=== PATIENT | male | born 1965 | race Caucasian/White ===

== ENCOUNTER 2016-08-25 22:24 | Emergency (ER) | payer OTHER, MEDICARE ==
[~2016-08-25 22:24] MED LIST: ENDOCET 325 MG-1 TAB PO; FLOMAX(MONOGRA0.4 MG PO; LOTRIMIN CR1 %/45 GM TOP; PERCOCET 325 MG1 TA2 PO
[2016-08-25 22:34] VITALS: BP 153/93
--- NOTE | 2016-08-25 22:48 | ED GENERAL ADULT ---
See Addendum History of Present Illness General Chief Complaint: Hand or Wrist Injury Stated Complaint: PAIN FROM LEFT HAND THAT RADIATES TO NECK Source: patient Exam Limitations: no limitations Vital Signs & Intake/Output Vital Signs & Intake/Output Vital Signs Date Time Temp Pulse Resp B/P B/P Pulse O2 O2 Flow FiO2 Mean Ox Delivery Rate 08/25 2316 98 Room Air 08/25 2234 98.8 83 16 153/93 98 Room Air ED Intake and Output 08/26 0000 08/25 1200 Intake Total 0 Output Total Balance 0 Intake, Oral 0 Patient 215 lb Weight Weight Reported by Patient Measurement Method Allergies Coded Allergies: NO KNOWN ALLERGIES (08/19/14) Reconcile Medications Acetaminophen/Oxycodone Hydr (Endocet 325 MG-10 MG) 1 TAB TAB 1 TAB PO TID PAIN CONTROL (Reported) Acetaminophen/Oxycodone Hydr (Endocet 325 MG-10 MG) 1 TAB TAB 1 TAB PO TID PRN PAIN TWENTY FOUR TABS... [id number] Clotrimazole (Lotrimin Cream 45GM) 1 % CREAM..G. 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 -N/V/D. SLIGHT SOB "INTO THE LEFT SIDE". 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 REPORTS BROTHER OF [place] AT AGE 46. Triage Nurses Notes Reviewed? yes Onset: Gradual Duration: hour(s): Timing: recent history Injury Environment: home Severity: mild Modifying Factors: Improves With: rest. Worsens With: movement. Associated Symptoms: left arm pain HPI: 51 yo gentleman presents with left arm discomfort that radiated up to his left chest. He had an episode yesterday that lasted 2 hours, and a second episode today which lasted 1 hour after [address]. He notes no pain at present, no shortness of breath, diaphoresis. He is otherwise well. Past History Travel History Traveled to [place] past 21 day No Medical History Any Pertinent Medical History? 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 No Review of Systems Review of Systems Constitutional: Reports: no symptoms. EENTM: Reports: no symptoms. Respiratory: Reports: no symptoms. Cardiovascular: Reports: no symptoms. GI: Reports: no symptoms. Genitourinary: Reports: no symptoms. Musculoskeletal: Reports: no symptoms. Skin: Reports: no symptoms. Neurological/Psychological: Reports: no symptoms. Hematologic/Endocrine: Reports: no symptoms. Immunologic/Allergic: Reports: no symptoms. All Other Systems: Reviewed and Negative Physical Exam Physical Exam General Appearance: well developed/nourished, no apparent distress Head: atraumatic, normal appearance Eyes: Bilateral: normal appearance, PERRL, EOMI. Ears, Nose, Throat: normal pharynx, normal ENT inspection Neck: normal inspection, supple, full range of motion Respiratory: normal breath sounds, chest non-tender, no respiratory distress, quiet respiration, lungs clear Cardiovascular: regular rate/rhythm, edema Gastrointestinal: normal bowel sounds, soft, non-tender, no organomegaly Back: normal inspection, normal range of motion Extremities: normal inspection Neurologic/Psych: no motor/sensory deficits, awake, alert, oriented x 3 Skin: intact, normal color, warm/dry Core Measures ACS in differential dx? No CVA/TIA Diagnosis: No Severe Sepsis Present: No Septic Shock Present: No Progress Differential Diagnoses I considered the following diagnoses in my evaluation of the patient: mi vs muscle spasm vs other. Plan of Care: Orders Procedure Date/time Status EKG 08/25 2232 Active Initial ED EKG: normal axis, normal intervals, normal p-waves, normal QRS complex, normal sinus rhythm Departure Departure Disposition: LEFT AGAINST MEDICAL ADVICE Condition: Stable Clinical Impression Primary Impression: Chest pain Secondary Impressions: Arm pain Referrals: JAMES PRECIADO (PCP/Family) Departure Forms: Customer Survey General Discharge Information Comments 08/26/16, 23:27... pt insists on leaving against medical advice. He notes, "I feel fine, doc... I have work in the morning." I informed him of the risks, including and serious morbidity. He expresses understanding, and has signed the AMA paperwork. I encouraged close follow up with the education instructor and return to the ED if his symptoms recur. Critical Care Note Critical Care Note Critical Care Time: non-applicable
[2016-08-26] MEDS ORDERED: OXYCONTIN10 M1 PO (18:55)
[2016-08-26] MEDS ORDERED: OXYCODONE HCL10 M2 PO (18:56)
== END 2016-08-25 23:35 | disposition left against medical advice (07) ==
LOC: ERH 22:24
DX: R07.9 Chest pain, unspecified (principal)
CPT/HCPCS: 93005; 93010

== ENCOUNTER 2016-08-26 08:51 | Inpatient (IN) | payer OTHER, MEDICARE ==
[~2016-08-26] VITALS: Ht 182.9 cm; Wt 97.5 kg
--- NOTE | 2016-08-26 08:59 | NUR ---
PT CALLED BACK TO ED BY DR. PINZON FOR ?HAD A HEART ATTACK PER PT. PT SEEN HERE LAST NIGHT AROUND 10PM AND THEN DISCHARGED HOME. HAD SOME CHEST PAIN INTERMITTENTLY FOR THE LAST TWO DAYS BUT NOW MOSTLY COMPLAINS OF L ARM DISCOMFORT THAT RADIATES INTO L CHEST AREA. DENIES SOB. NO ACUTE DISTRESS NOTED, DENIES N/V/D, DIZZINESS. EKG DONE IN [place].
--- NOTE | 2016-08-26 09:05 | NUR ---
PT TAKEN TO ROOM 10, HOOKED UP TO SHOE SHANKER.
--- NOTE | 2016-08-26 09:18 | NUR ---
PT TO ER ROOM 10. IV EST TO R HAND. BLOOD WORK DRAWN AND SENT TO LAB. PT C/O "DISCOMFORT" TO WRIST RADIATING UP L ARM TO L SIDE OF CHEST. NSR ON MONITOR. PER PT HE GOT A PHONE CALL STATING HE MIGHT HAVE HAD A HEART ATTACK. DENIES SOB, DENIES ABD PAIN. PT STATES HIS YOUNGER BROTHER OF A HEART ATTACK AND HIS FATHER HAS A PACEMAKER AND STENTS.
[2016-08-26 09:23] LABS: ABSOLUTE BASOPHIL COUNT 0 /CUMM (0.0-0.2); ABSOLUTE EOSINOPHIL COUNT 0.3 /CUMM (0.0-0.7); ABSOLUTE GRANULOCYTE CT 9.4 /CUMM (1.4-6.5); ABSOLUTE LYMPH COUNT 2.9 /CUMM (1.2-3.4); ABSOLUTE MONOCYTE COUNT 0.9 /CUMM (0.10-0.60); BASOPHIL % 0.3 % (0.0-2.0); EOSINOPHIL % 2.1 % (0-5); GRANULOCYTE % 69.9 % (42.2-75.2); HEMATOCRIT 43.7 % (42-52); MEAN CORPUSCULAR HGB 31.2 PG (27.0-31.0); MEAN CORPUSCULAR HGB CONC 34.7 G/DL (33.0-37.0); MEAN PLATELET VOLUME 7.7 FL (7.4-10.4); PLATELET COUNT 305 /CUMM (130-400); RBC DISTRIBUTION WIDTH 13.4 % (11.5-14.5); RED BLOOD CELL CT 4.86 /CUMM (4.70-6.10); WHITE BLOOD CELL COUNT 13.4 /CUMM (4.8-10.8)
--- NOTE | 2016-08-26 09:51 | NUR ---
PT MEDICATED WITH ASPIRIN AND NITRO PER ORDER STATES PAIN 05/27 AT THIS TIME BP 123/87
--- NOTE | 2016-08-26 09:51 | RADIOLOGY REPORT ---
EXAMINATION: XR PORTABLE CHEST CLINICAL INFORMATION: Chest pain COMPARISON: Chest x-ray dated 12/17/2008 TECHNIQUE: Portable frontal view of the chest was obtained. FINDINGS: Cardiomediastinal silhouette is within normal limits. Mild prominence of the pulmonary markings compatible with chronic change. No acute airspace disease. No evidence of pleural effusion. Bony thorax is intact. IMPRESSION: No acute pulmonary disease. Mild chronic changes.
--- NOTE | 2016-08-26 09:57 | NUR ---
CRITICAL TEST RESULTS [id number] JULIANNA ABDI 51 M TESTS AND RESULTS: TROPONIN 1.59 Results received and read back by: RASHAWN WERNER Results received date and time: 08/26/16 0957 The following provider was notified of the results, and read the results back: DR CASTELLANOS Notified date and time: 08/26/16 at 0957
--- NOTE | 2016-08-26 09:58 | NUR ---
PT REPORTS "I THINK THE PAIN GOT A LITTLE WORSE" WHEN ASKED IF PAIN IS BETTER AFTER THE NITRO. PT REPORTS PAIN 5/10 AT THIS TIME. MD RODRIGUEZ
--- NOTE | 2016-08-26 10:21 | ED CARDIAC/CP/PALPITATIONS ---
History of Present Illness General Chief Complaint: Chest Pain Stated Complaint: CHEST PAIN,L ARM PAIN Source: patient, old records Exam Limitations: no limitations Vital Signs & Intake/Output Vital Signs & Intake/Output Vital Signs Date Time Temp Pulse Resp B/P B/P Pulse O2 O2 Flow FiO2 Mean Ox Delivery Rate 08/26 1317 97.7 65 18 121/86 97 Room Air 08/26 1145 98.4 76 18 135/76 98 Room Air 08/26 1033 97.9 74 18 114/78 95 08/26 0958 98.4 76 18 124/79 98 Room Air 08/26 0952 98.6 81 18 123/87 98 Room Air 08/26 0916 98 Room Air 08/26 0905 97.5 88 15 132/88 96 Room Air Room Air Allergies Coded Allergies: NO KNOWN ALLERGIES (08/26/16) Reconcile Medications No Known Home Medications Triage Note: PT CALLED BACK TO ED BY DR. PINZON FOR ?HAD A HEART ATTACK PER PT. PT SEEN HERE LAST NIGHT AROUND 10PM AND THEN DISCHARGED HOME. HAD SOME CHEST PAIN INTERMITTENTLY FOR THE LAST TWO DAYS BUT NOW MOSTLY COMPLAINS OF L ARM DISCOMFORT THAT RADIATES INTO L CHEST AREA. DENIES SOB. NO ACUTE DISTRESS NOTED, DENIES N/V/D, DIZZINESS. EKG DONE IN [place]. Triage Nurses Notes Reviewed? yes Onset: 3 days Duration: day(s):, continues in ED, intermittent Timing: recent history Quality/Severity: moderate, severe, aching Location: left upper chest Radiation: arms (L hand) Activities at Onset: activity (climbing stairs) Modifying Factors: Improves With: rest. Worsens With: exercise. Nitro Today/Relief: 0.4 mg x 1, provided by ED Aspirin Today: 325 mg x 1, provided by ED Associated Symptoms: fatigue HPI: 3 days prior to admission after climbing upstairs patient felt left-sided chest discomfort moderate in severity radiating to left hand associated with shortness of breath resolving with rest occurring intermittently since then. He denies fever chills nausea vomiting diarrhea abdominal pain headache dysuria rash bleeding. Past History Travel History Traveled to [place] past 21 day No Medical History Any Pertinent Medical History? 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 Yes (brother w [place] @ 46 yo) Review of Systems Review of Systems Constitutional: Reports: no symptoms. EENTM: Reports: no symptoms. Respiratory: Reports: see HPI, short of breath. Cardiovascular: Reports: see HPI, chest pain. GI: Reports: no symptoms. Genitourinary: Reports: no symptoms. Musculoskeletal: Reports: no symptoms. Skin: Reports: no symptoms. Neurological/Psychological: Reports: no symptoms. Hematologic/Endocrine: Reports: no symptoms. Immunologic/Allergic: Reports: no symptoms. All Other Systems: Reviewed and Negative Physical Exam Physical Exam General Appearance: well developed/nourished, alert, awake, anxious Head: atraumatic, normal appearance Eyes: Bilateral: normal appearance, PERRL, EOMI. Ears, Nose, Throat: normal pharynx, normal ENT inspection, hearing grossly normal Neck: normal inspection, supple, full range of motion, no midline tenderness Respiratory: normal breath sounds, chest non-tender, no respiratory distress, quiet respiration, lungs clear Cardiovascular: regular rate/rhythm, normal peripheral pulses, norml femoral pulses equa Peripheral Pulses: 4+ carotid (R), 4+ carotid (L) Gastrointestinal: normal bowel sounds, soft, non-tender, no organomegaly Back: normal inspection, normal range of motion Extremities: normal inspection, normal capillary refill, normal range of motion, no edema Neurologic/Psych: no motor/sensory deficits, awake, alert, oriented x 3, normal gait, normal mood/affect, 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 Skin: intact, normal color, warm/dry Lymphatic: no anterior cervical jamie Core Measures ACS in differential dx? Yes ASA ordered for poss ACS? Yes-ordered Severe Sepsis Present: No Septic Shock Present: No Progress Differential Diagnosis: AMI, atrial fibrillation, costochondritis, musculoskeletal pain, myocarditis, pericarditis, pneumonia Plan of Care: Orders Procedure Date/time Status LIPID PANEL 08/27 599 Active CBC WITHOUT DIFFERENTIAL 08/27 599 Active Nothing by Mouth 08/26 D Active TROPONIN LEVEL 08/26 1500 Active EKG 08/26 1500 Active Add-on Test (ER Only) 08/26 1250 Active Pathway - chart 08/26 1235 Active Pathway - chart 08/26 1234 Active House Staff 08/26 1234 Active Code Status 08/26 1234 Active ECHOCARDIOGRAM 08/26 1234 Active Add-on Test (ER Only) 08/26 1219 Active Patient Data 08/26 1102 Active Admit to inpatient 08/26 1036 Active EKG 08/26 1020 Active Intake & Output 08/26 0916 Active THYROID STIMULATING HORMONE 08/26 0912 Active PROTHROMBIN TIME 08/26 0912 Complete B-TYPE NATRIURETIC PEP (BNP) 08/26 0912 Active TROPONIN LEVEL 08/26 0852 Active COMPREHENSIVE METABOLIC PANEL 08/26 0852 Active CBC WITHOUT DIFFERENTIAL 08/26 0852 Complete EKG 08/26 0851 Active VTE Mechanical Prophylaxis 08/26 UNK Active Current Medications Sig/Arlnee Start time Last Medication Dose Stop Time Status Admin Aspirin 81 MG DAILY 08/27 1000 UNVr (Aspirin) Atorvastatin Calcium 80 MG 1700 08/26 1700 UNVr (Lipitor) Acetaminophen 650 MG Q6P PRN 08/26 1245 UNVr (Tylenol) Ibuprofen 600 MG Q6P PRN 08/26 1245 UNVr (Motrin) Morphine Sulfate 2 MG Q4P PRN 08/26 1245 UNVr (Morphine) Laboratory Tests 08/26/16 0912: Anion Gap 12, Estimated GFR > 60, BUN/Creatinine Ratio 23.8, Glucose 109 H, Calcium 9.6, Total Bilirubin 0.6, AST 43, ALT 35, Alkaline Phosphatase 63, Troponin I 1.59 *H, [id number] Pept 273 H, Total Protein 6.9, Albumin 4.3, Globulin 2.6, Albumin/Globulin Ratio 1.7, TSH Pending, PT 10.5, INR 1.00, CBC w Diff NO MAN DIFF REQ, RBC 4.86, MCV 90.0, MCH 31.2 H, RDW 13.4, MPV 7.7, Gran % 69.9, Lymphocytes % 21.3, Monocytes % 6.4, Eosinophils % 2.1, Basophils % 0.3, Absolute Granulocytes 9.4 H, Absolute Lymphocytes 2.9, Absolute Monocytes 0.9 H, Absolute Eosinophils 0.3, Absolute Basophils 0, PUBS MCHC 34.7 Diagnostic Imaging: Viewed by Me: Radiology Read. Discussed w/RAD: Radiology Read. CXR Impression: no acute abnormality, no infiltrates, normal size heart, normal mediastinum Initial ED EKG: normal axis, normal intervals, normal p-waves, normal QRS complex, normal sinus rhythm, ST elevation (inferolateral), No reciprocal changes Prior EKG: unchanged Repeat EKG: unchanged Rhythm Strip: normal sinus rhythm Departure Departure Disposition: STILL A PATIENT Condition: Stable Clinical Impression Primary Impression: Acute myopericarditis Secondary Impressions: Chest pain syndrome, Elevated troponin Referrals: JAMES PRECIADO (PCP/Family) Departure Forms: Customer Survey General Discharge Information Prescriptions: Current Visit Scripts No Known Home Medications Admission Note Spoke With: SHEREE HALE MD Documentation of Exam: Documentation of any treatments & extenuating circumstances including Concerns Regarding Discharge (functional status, medication knowledge or non-compliance, living conditions, etc.) that warrant an admission rather than observation: Cardiac monitoring cardiology evaluation echocardiogram serial lab exam medication adjustment smoking cessation continuing care discharge planning Critical Care Note Critical Care Note Critical Care Time: 30-74 min (40)
--- NOTE | 2016-08-26 10:34 | NUR ---
PT MEDICATED WITH MORPHINE PER ORDER AT THIS TIME. STATES PAIN 07/27. 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
--- NOTE | 2016-08-26 10:37 | NUR ---
PER PAINT POURER PT TO BE ADMITTED TO ICU.
--- NOTE | 2016-08-26 10:42 | NUR ---
PT REPORTS PAIN IS MUCH BETTER AT THIS TIME. STATES 1/ AT THIS TIME. PT STATES HE WAS NAAUSEOUS "FOR A MINUTE AFTER YOU GAVE ME THE MEDICINE" BUT STATES THAT HAS SUBSIDED.
--- NOTE | 2016-08-26 11:38 | NUR ---
RESIDENT IN WITH PT AT THIS TIME
--- NOTE | 2016-08-26 12:14 | NUR ---
PT REMAINS RESTING ON STRETCHER AT THIS TIME. AWARE WAITING ON BED ASSISNGMENT, DENIES PAIN AT THIS TIME. REMAINS NSR ON MONITOR. VSS.
--- NOTE | 2016-08-26 12:35 | History & Physical ---
CARLTON MOON 08/26/16 1235: General Information and HPI MD Statement: I have seen and personally examined JULIANNA RICKS and documented this H&P. The patient is a 51 year old M who presented with a patient stated chief complaint of [CHEST PAIN]. Source of Information: patient, old records Exam Limitations: no limitations History of Present Illness: Mr. Ricks is a 51-year-old gentleman with past medical history of nephrolithiasis status post lithotripsy of bladder stone 2 weeks ago and chronic back pain after sustained fall many years ago, presents with hospital she department after he was instructed to do so by Dr. Encarnacion. Yesterday, the patient was in the emergency department with complaints of 2 episodes of chest pain. He unfortunately left AGAINST MEDICAL ADVICE prior to being fully worked up. Upon further questioning, he states that he had an episode of left arm/shoulder pain which she felt radiated to his chest after driving to his brother's house and then climbing up the stairs. He states that this is never happened before. States that it lasted approximately 1-1.5 hours and was mild to moderate in severity. He again had another episode yesterday night before coming to the emergency department he was watching television. It also lasted approximately 1 -1.5 hours. States that when he woke up today after he heard the phone ring, he again had similar arm/chest pain, approximately 7 out of 10 in severity, similar in character to the 2 previous episodes. He states that by the time he got to the hospital it was 2 out of 10 however creeped up to 4 out of 10 prior to getting morphine. At the time of interview the patient still had discomfort, 1/ 2 out of 10. He denies any previous similar episodes. He denies any associated symptoms including palpitations, lightheadedness, fever, diaphoresis, fatigue, dyspnea, edema, myalgias, nausea, vomiting, or abdominal pain. He denies any specific alleviating or exacerbating factors. He denies a pleuritic nature to the chest pain, or relief with leaning forward. Mr. Cook does state that last year he did see a chemistry laboratory technician for screening exercise stress test which she was told was within normal limits. He states that he did not have any chest pain or significant discomfort after being on the treadmill. 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 He has a significant past social history of cigarette use, 1 pack every 2-3 days for the last 30 years. He drinks 6-12 beers at family gatherings once to twice per month. He does have significant family history of coronary disease. His father had 3 epicardial impressions status post multiple stents. His brother Favian, passed at 46 years old from myocardial infarction. He has 2 other brothers, including 1 identical twin brother, Rich, who have no known coronary disease per the patient. In the emergency department, vitals on admission were stable, 97.5, 88 bpm, 15 breaths per minute, 132/88 saturating 96% on room air. EKG revealed sinus rhythm at a rate of [address] [place] [address] elevations, less than 1 mm in leads 2, 3, and V6. More significant ST elevations in lead V4 and V5. No T wave inversions. No noted [place] depression. Labs were significant for a troponin of 1.59. White blood cell count 13.4. BUNs/creatinine 19/0.8 with a glucose of 109. Chest x-ray was unremarkable. Allergies/Medications Allergies: Coded Allergies: NO KNOWN ALLERGIES (08/26/16) Home Med list Aspirin (Aspirin*) 81 MG TAB.CHEW 81 MG PO DAILY Heart health Heparin Sod,Porcine/0.9 % NaCl (Heparin-Ns 25,000 Units/250 Ml) 25,000 UNIT/250 ML (100 UNIT/ML) IV.SOLN 25,000 U IV DAILY anticoagulation please titrate to 2x the upper limits of normal for aPTT Oxycodone HCl (Oxycontin) 10 MG TAB.ER.12H 1 TAB PO BID BACK AND FLANK PAIN ( Reported) Oxycodone HCl 10 MG TABLET 1 TAB PO TID BACK AND FLANK PAIN (Reported) 1 TAB IN AM 2 TABS IN AFTERNOON 1 TAB IN PM Ticagrelor (Brilinta) 90 MG TABLET 1 TAB PO BID cardiac cath Compliance With Home Meds: GOOD Past History Travel History Traveled to [place] past 21 day No Medical History Neurological: NONE EENT: NONE Cardiovascular: NONE Respiratory: NONE Gastrointestinal: NONE Hepatic: NONE Renal: NONE Musculoskeletal: chronic back pain, disk herniation, sciatica Psychiatric: anxiety, depression Endocrine: NONE Blood Disorders: NONE Cancer(s): NONE GENERAL PRACTICE/Reproductive: NONE Surgical History Surgical History: non-contributory Past Family/Social History Family History Relations & Conditions if any BROTHER ([place] - at 46). FATHER (3 [place] s/p stents - alive at of 2017). Relation not specified for: *No pertinent family history Psychosocial History Where do you live? Home Services at Home: None Smoking Status: Current Everyday Smoker ETOH Use: occasional use Illicit Drug Use: denies illicit drug use Functional Ability ADLs Independent: dressing, eating, toileting, bathing. Ambulation: independent IADLs Independent: shopping, housework, finances, food prep, telephone, transportation , medication admin. Employment History Employment Disability Review of Systems Review of Systems Constitutional: Reports: see HPI. Exam & Diagnostic Data Last 24 Hrs of Vital Signs/I&O Vital Signs Date Time Temp Pulse Resp B/P B/P Pulse O2 O2 Flow FiO2 Mean Ox Delivery Rate 08/26 1145 98.4 76 18 135/76 98 Room Air 08/26 1033 97.9 74 18 114/78 95 08/26 0958 98.4 76 18 124/79 98 Room Air 08/26 0952 98.6 81 18 123/87 98 Room Air 08/26 0916 98 Room Air 08/26 0905 97.5 88 15 132/88 96 Room Air Room Air Intake & Output 08/26 1600 08/26 0800 08/26 0000 Intake Total 0 Output Total Balance 0 Intake, Oral 0 Patient 97.522 kg Weight Weight Reported by Patient Measurement Method Physical Exam General Appearance Alert, Oriented X3, Cooperative, No Acute Distress Skin Temp/Moisture Exam: Warm/Dry HEENT Atraumatic, PERRLA, EOMI Neck No JVD Cardiovascular Regular Rate, Normal S1, Normal S2, No Murmurs, no rubs noted Lungs Clear to Auscultation, Normal Air Movement Abdomen Normal Bowel Sounds, Soft, No Tenderness, pulsatile in the epigastric area, non palpable on deep palpation. No murmurs noted. Extremities No Tenderness/Swelling Last 24 Hrs of Labs/Kunal: Laboratory Tests 08/26/16 0912: Anion Gap 12, Estimated GFR > 60, BUN/Creatinine Ratio 23.8, Glucose 109 H, Calcium 9.6, Total Bilirubin 0.6, AST 43, ALT 35, Alkaline Phosphatase 63, Troponin I 1.59 *H, [id number] Pept 273 H, Total Protein 6.9, Albumin 4.3, Globulin 2.6, Albumin/Globulin Ratio 1.7, TSH 1.490, PT 10.5, INR 1.00, CBC w Diff NO MAN DIFF REQ, RBC 4.86, MCV 90.0, MCH 31.2 H, RDW 13.4, MPV 7.7, Gran % 69.9, Lymphocytes % 21.3, Monocytes % 6.4, Eosinophils % 2.1, Basophils % 0.3, Absolute Granulocytes 9.4 H, Absolute Lymphocytes 2.9, Absolute Monocytes 0.9 H, Absolute Eosinophils 0.3, Absolute Basophils 0, PUBS MCHC 34.7 Diagnostic Data EKG Results sinus rhythm at a rate of [address]pm. [place] 0[address] Slight [address] elevations, less than 1 mm in leads 2, 3, and V6. More significant ST elevations in lead V4 and V5. No T wave inversions. No noted WY depression. CXR Results SERVICE DATE: 08/26/16 EXAM TYPE: RAD - XRY-PORTABLE CHEST XRAY EXAMINATION: XR PORTABLE CHEST CLINICAL INFORMATION: Chest pain COMPARISON: Chest x-ray dated 12/17/2008 TECHNIQUE: Portable frontal view of the chest was obtained. FINDINGS: Cardiomediastinal silhouette is within normal limits. Mild prominence of the pulmonary markings compatible with chronic change. No acute airspace disease. No evidence of pleural effusion. Bony thorax is intact. IMPRESSION: No acute pulmonary disease. Mild chronic changes. Assessment/Plan Assessment: Mr. Ricks is a 51-year-old gentleman with past medical history of nephrolithiasis, with a long standing history of tobacco use, a strong family history of coronary disease includine a his brother that of an OK at 46, who presented to the ED with for evaluation of chest pain. EKG revealed sinus rhythm at a rate of [address]pm. [place] 0[address] Slight ST elevations, less than 1 mm in leads 2, 3, and V6. More significant ST elevations in lead V4 and V5. No T wave inversions. No noted WY depression. Labs were significant for a troponin of 1.59. Problem List/Assessment and Plan Elevated troponins with ST-T elevations * As Mr. Ricks, does have significant risk factors for coronary disease including multiple first degree family members, as well as a smoking history, we will admit the patient to ICU for close monitoring and to trend trops/EKG. * Possible etiologies for elevated troponin with ST-T changes include ischemic ( STEMI vs NSTEMI) and non-ichemic causes (myopericarditis, myocarditis). His cause may be more concerning for ischemic causes given his family history, smoking history and clinical presentation of chest pain with rest and activity. * We will treat this as an NSTEMI for now with perimyocarditis as a possible second cause. Pericarditis alone, would cause a similar chest pain, but classically we would expect a friction rub and troponin levels WNL, hence the diagnosis of perimyocarditis. * Patient was loaded with ASA. We will continue 81 mg daily. We will also add a lipid panel to the am labs, and obtain TSH to r/o thyroid dysfunction. Additionally, ESR and high-sensitivity CRP would be expected in pericarditis, and we will obtain their levels. * Nitro paste 1/2 inch q6 hours for pain as long as BP tolerates. * We will also investigate with an echocardiogram to evaluate for pericardial effusion. If there is an effusion present, we will treat him for perimyocarditis, however if there is no effusion, we will heparinize him and load him with ticagrelor (180mg loading, followed by 90mg BID). If this is the case, we will also consider transfering for cardiac catheterization. Abdominal Pulsation * Long standing history of smoking * Age recommendations for to screen for a AAA with ultrasonography start at 65 years old. I dont think he needs an emergent abdominal U/S, but given the fact that his abdominal pulsation was evident on physical exam, he should probably get one upon discharge to evaluate for a AAA given his long standing smoking hx. It could also just be his body habitus. FULL CODE NPO for now pending echo ALPs for As Ranked By This Provider Problem List: 1. Elevated troponin Core Measures/Miscellaneous Acute Coronary Syndrome ACS Diagnosis: Yes Date of most recent Echo 08/26/16 Last Known EF % 65 ASA W/I 24hr of admit Yes LDL assessed W/I 24 hrs Yes Currently on Statin Yes Cerebrovascular Accident CVA/TIA Diagnosis: No Congestive Heart Failure CHF Diagnosis: No VTE (View Protocol) VTE Risk Factors: Acute medical illness, Age > 40 No [facility] VTE prophylaxis d/t: No contraindications No VTE Pharm Prophylaxis d/t: No contraindications VTE Diagnosis: No VTE Type: NONE VTE Confirmed by (Test): NONE Sepsis (View Protocol) Severe Sepsis Present: No Septic Shock Septic Shock Present: No Miscellaneous Documentation Attending Case Discussed With: POP LOUIS MD Primary Care Physician: JAMES PRECIADO Patient sees these Specialists Dr. Serna Level of Patient Care: Critical Care (CRI) POP LOUIS MD 08/26/16 1244: Attending Review Statement Attending Statement Attending MD Statement: examined this patient, discuss w/resident/PA/PEOPLESOFT PROGRAMMER, agreed w/resident/PA/PEOPLESOFT PROGRAMMER, reviewed EMR data (avail), reviewed images, amended to note Attending Assessment/Plan: The patient is a 51 yo male with significant FH of CAD (sudden in brother at age 46 and father with stents and 3 OK's), + smoker, h/o chronic back pain/ disk disease,anxiety, depression, nephrolithiasis who originally presented in [place] ED the night prior to admission with intermittent exertional chest pain x 2 days (noted while climbing stairs) with radiation to his left arm and some associated dyspnea. His EKG was initially interpreted as normal, however over- read by chemistry laboratory technician suggested subtle ST-T changes. The patient left AMA as symptoms resolved. He was subsequently called back to return with probable cardiac etiology. Troponin I was noted to be elevated upon return with 1.59 and rudy to 1.66. He had also described some chest discomfort at rest. He denied any pleuritic symptoms, palpitations, light-headedness. He did have h/o prior Cardiology evaluation as outpatient (saw Dr. Hoyos x 2 and had negative OP stress - ? 1 year ago) . Physical Exam: VS: T 97.5, P 88, R 15-18, BP 132/88, PO 96% on RA HEENT: eyes- PERRLA, EOMi lisa- no lesions, moist mucosa Neck: no JVD or bruits Chest: clear Cor: RRR, nl S1, S2 w/o murm or rub Abd: BS+, soft, NT, - masses or HSM Ext: no edema, tenderness, pulses 2+ Neuro: alert & oriented x 3, non-focal Labs/Tests: as above Impression/Plan: #Acute Myocardial Infarction- ?NSTEMI vs STEMI- with mild ST changes on EKG noted. Initially left ED last night and was called back in due to concern regarding subtle ST changes. Patient has significant family history including brother sudden at 46. He is a smoker. ECHO showed no WMA or pericardial effusion and normal LVEF. Plan: Admit to ICU- check serial troponin levels. Cardiology consult- Dr. Miller consulted in ED as patient could not recall his prior OP chemistry laboratory technician (Dr. Hoyos). Close telemetry monitoring and VS monitoring. IV heparin. Brilinta 180 mg x 2 and then 90 mg bid. ASA 81 mg daily. Atorvastatin 80 mg daily. Nitropaste. Morphine prn. Avoid Ibuprofen in acute OK (?ordered as part of pain pathway?). NPO after midnight- presume transfer and cardiac catheterization. #Nicotine Dependence- noted active smoker. Plan: Ativan prn. #H/O Nephrolithiasis- s/p prior lithotripsy. No acute symptoms. Plan: Will follow. #Chronic Low Back Pain- no change in symptoms. Plan: Tylenol/Morphine as above. Avoid NSAIDS.
[2016-08-26 12:36] LABS: PT 10.5 SEC (9.4-12.5)
--- NOTE | 2016-08-26 14:10 | NUR ---
ECHO AT BEDSIDE AT THIS TIME
--- NOTE | 2016-08-26 14:29 | NUR ---
ECHO REMAINS AT BEDSIDE AT THIS TIME
--- NOTE | 2016-08-26 14:43 | NUR ---
TOPICAL NITRO APPLIED TO L SIDE OF CHEST AT THIS TIME.
--- NOTE | 2016-08-26 15:32 | NUR ---
BLOOD DRAWN AND SENT TO LAB 1SST TUBE
--- NOTE | 2016-08-26 15:39 | NUR ---
Emergency Dept UC Admit Note: To be admitted to [facility] by [facility]ISES with NSTEMI as the diagnosis, to ICU location. Nursing Measurement Coordinator and admitting notified 08/26/16 at 1539
--- NOTE | 2016-08-26 15:41 | NUR ---
[facility] [place] ASSIGNMENT [id number]
--- NOTE | 2016-08-26 16:20 | NUR ---
CRITICAL TEST RESULTS [id number] JULIANNA ABDI 51 M TESTS AND RESULTS: TROPONIN 1.66 Results received and read back by: JERRY DE GUZMAN Results received date and time: 08/26/16 1620 The following provider was notified of the results, and read the results back: DR CASTELLANOS Notified date and time: 08/26/16 at 1620
[2016-08-26 18:00] VITALS: BP 144/70
--- NOTE | 2016-08-26 18:02 | Cons- Cardiology ---
General Information and HPI Consulting Request Date of Consult: 08/26/16 Requested By: POP LOUIS MD Reason for Consult: Chest pain and positive troponin in a 51-year-old man Source of Information: patient, old records Exam Limitations: no limitations History of Present Illness: The patient is a 51-year-old male who has been generally healthy. He does not have a history of heart disease although apparently has seen a dog or horse racing official in the past for screening stress test etc. He is on no cardiac medications. Last evening the patient came to the [place] emergency room complaining of a couple of episodes of chest pain. He had a an EKG showing some minor ST elevation inferiorly and was recommended to stay for cardiac evaluation but signed out AMA. Unfortunately no blood work was able to be drawn at that time. This morning when his EKG was read by Dr. Amaya he called the emergency department physician and suggested that there was a possibility of acute ischemia on this tracing and the patient should be recalled to the emergency department. In fact the patient did come back to the emergency department and stated he was still having some intermittent chest pain. At that time his troponin was reported back as positive at 1.59. He states he had 7 out of 10 chest pain this morning which improved by the time he got to the emergency department but he was still having some pain. He denies any previous chest pain episodes. Because of the positive troponin and EKG suggesting either ischemia or pericarditis, it was recommended that he be admitted and have a stat echocardiogram. Allergies/Medications Allergies: Coded Allergies: NO KNOWN ALLERGIES (08/26/16) Home Med List: Aspirin (Aspirin*) 81 MG TAB.CHEW 81 MG PO DAILY [facility] Heparin Sod,Porcine/0.9 % NaCl (Heparin-Ns 25,000 Units/250 Ml) 25,000 UNIT/250 ML (100 UNIT/ML) IV.SOLN 25,000 U IV DAILY anticoagulation please titrate to 2x the upper limits of normal for aPTT Oxycodone HCl (Oxycontin) 10 MG TAB.ER.12H 1 TAB PO BID BACK AND FLANK PAIN ( Reported) Oxycodone HCl 10 MG TABLET 1 TAB PO TID BACK AND FLANK PAIN (Reported) 1 TAB IN AM 2 TABS IN AFTERNOON 1 TAB IN PM Ticagrelor (Brilinta) 90 MG TABLET 1 TAB PO BID cardiac cath Current Medications: Current Medications Sig/Arlene Start time Last Medication Dose Route Stop Time Status Admin Acetaminophen 650 MG Q6P PRN 08/26 1245 AC PO Aspirin 81 MG DAILY 08/27 1000 AC PO Aspirin 0 .STK-MED ONE 08/26 0953 DC PO Aspirin 324 MG ONCE ONE 08/26 0930 DC 08/26 PO 08/26 0931 0950 Atorvastatin Calcium 80 MG 1700 08/26 1700 AC PO Heparin Sodium 0 .STK-MED ONE 08/26 1636 DC (Porcine) .ROUTE Heparin Sodium 25,000 UNIT Q24H 08/26 1615 AC 08/26 (Porcine) IV 1649 Sodium Chloride 500 ML Heparin Sodium 4,000 UNIT ONCE ONE 08/26 1615 DC 08/26 (Porcine) IV 08/26 1616 1635 Ibuprofen 600 MG Q6P PRN 08/26 1245 AC PO Morphine Sulfate 2 MG Q4P PRN 08/26 1245 AC IV Morphine Sulfate 2 MG ONCE ONE 08/26 1030 DC 08/26 IV 08/26 1031 1033 Nitroglycerin 0 .STK-MED ONE 08/26 1446 DC TOP Nitroglycerin 0.5 GM Q6 08/26 1421 AC 08/26 TOP 1443 Nitroglycerin 0 .STK-MED ONE 08/26 0953 DC SL Nitroglycerin 0.4 MG ONCE ONE 08/26 0930 DC 08/26 SL 08/26 0931 0950 Ticagrelor 90 MG BID 08/27 1000 AC PO Ticagrelor 180 MG ONCE ONE 08/26 1615 DC PO 08/26 1616 Review of Systems Review of Systems: He has no other complaints in the review of systems at this time. Past History Travel History Traveled to [place] past 21 day No Medical History Neurological: NONE EENT: NONE Cardiovascular: NONE Respiratory: NONE Gastrointestinal: NONE Hepatic: NONE Renal: NONE Musculoskeletal: chronic back pain, disk herniation, sciatica Psychiatric: anxiety, depression Endocrine: NONE Blood Disorders: NONE Cancer(s): NONE CHARGER TESTER/Reproductive: NONE Surgical History Surgical History: non-contributory Family History Relations & Conditions If Any: BROTHER ([place] - at 46). FATHER (3 [place] s/p stents - alive at of 2017). Relation not specified for: *No pertinent family history Psychosocial History Where Do You Live? Home Services at Home: None Smoking Status: Current Everyday Smoker ETOH Use: occasional use Illicit Drug Use: denies illicit drug use Functional Ability ADLs Independent: dressing, eating, toileting, bathing. Ambulation: independent IADLs Independent: shopping, housework, finances, food prep, telephone, transportation , medication admin. Employment History Employment: Disability Exam & Diagnostic Data Vital Signs and I&O Vital Signs Date Time Temp Pulse Resp B/P B/P Pulse O2 O2 Flow FiO2 Mean Ox Delivery Rate 08/26 1438 63 132/74 98 Room Air 08/26 1317 97.7 65 18 121/86 97 Room Air 08/26 1145 98.4 76 18 135/76 98 Room Air 08/26 1033 97.9 74 18 114/78 95 07/ 0958 98.4 76 18 124/79 98 Room Air 08/26 0952 98.6 81 18 123/87 98 Room Air 08/26 0916 98 Room Air 08/26 0905 97.5 88 15 132/88 96 Room Air Room Air Intake & Output 08/26 1600 08/26 0800 07/ 0000 08/25 1600 08/25 0800 08/25 0000 Intake Total 0 Output Total Balance 0 Intake, Oral 0 Patient 215 lb Weight Weight Reported by Patient Measurement Method Physical Exam: On physical he is a middle-age man who is in no acute distress at this time. HEENT exam is normal Neck veins not distended Carotids normal Chest is clear to percussion and auscultation Heart reveals regular rhythm and no murmurs Extremities reveal good pulses and no edema Neurologic examination grossly intact Diagnostic Data EKG Results Initial EKG on August 25 at 22:35 hrs. shows sinus rhythm at a rate of [address] elevation of about 1 mm. Repeat EKG this morning at 8:55 AM showed sinus rhythm at a rate of 91, there is again minimal inferior and lateral ST elevation with no definite reciprocal changes. Repeat EKG at 10:27 AM showed sinus rhythm at a rate of 72 with some nondiagnostic lateral ST elevation and extremely minimal inferior ST elevation again with no reciprocal changes. CXR Results PATIENT: JULIANNA ABDI PRESENT AGE: 51 PATIENT ACCOUNT NO: [id number] : 66 LOCATION: [facility] ORDERING PHYSICIAN: ELAINE CASTELLANOS MD SERVICE DATE: 08/26/16 EXAM TYPE: RAD - XRY-PORTABLE CHEST XRAY EXAMINATION: XR PORTABLE CHEST CLINICAL INFORMATION: Chest pain COMPARISON: Chest x-ray dated 12/17/2008 TECHNIQUE: Portable frontal view of the chest was obtained. FINDINGS: Cardiomediastinal silhouette is within normal limits. Mild prominence of the pulmonary markings compatible with chronic change. No acute airspace disease. No evidence of pleural effusion. Bony thorax is intact. IMPRESSION: No acute pulmonary disease. Mild chronic changes. DICTATED BY: PAM ENG MD DATE/TIME DICTATED:08/26/16946 SCHOOL SUPERINTENDENT:AIDAN DATE/TIME TRANSCRIBED:08/26/16946 CONFIDENTIAL, DO NOT COPY WITHOUT APPROPRIATE AUTHORIZATION. <Electronically signed in Other Vendor System> SIGNED BY: PAM ENG MD 08/26/16 0951 Other Results CONCLUSIONS Normal global left ventricular size, wall thickness, systolic function with no obvious regional wall motion abnormalities. Left atrial size at the upper limits of normal. Mild thickening/calcification of the mitral valve leaflets. Mild mitral regurgitation. Structurally normal aortic valve without significant sclerosis or stenosis. Pulmonary artery systolic pressure is normal. Loy Miller M.D. (Electronically Signed) Final Date: 26 August 2016 19:02 Assessment/Plan Assessment/Plan This patient presents with intermittent chest pain, minimal EKG changes and positive cardiac enzymes at fairly low intensity. I don't think he meets criteria for ST elevation myocardial infarction. The possibility of pericarditis with some myocarditis component is possible. An echocardiogram was done and did not show any pericardial effusion or any regional wall motion abnormalities so it was not helpful in the differential. However at his age with risk factors of smoking and unknown lipid status and a the family history of sudden cardiac I think we should err on the side of ischemia and treat him as a non-ST elevation myocardial infarction. I would anticipate transferring him for cardiac catheterization most likely tomorrow depending again on the troponin curve. In the meantime we will start him on heparin, Brilinta and nitroglycerin and monitor him closely in the intensive care unit. Consult Acknowledgment - Thank you for your consult request.
[2016-08-26] MEDS ORDERED: OXYCONTIN10 M1 PO (18:55)
[2016-08-26] MEDS ORDERED: OXYCODONE HCL10 M2 PO (18:56)
--- NOTE | 2016-08-26 19:02 | ECHOCARDIOGRAM REPORT ---
JULIANNA ABDI Age: 51 : 1965 Gender: M Exam Date: 08/26/2016 14:00 Exam Location: ER Ht (in): 72 Wt (lb): 215 BSA: 2.25 BP: 121 / 86 Ordering Physician: CARLTON MOON MD Referring Physician: Loy Miller MD Chief, SoC Technologist: Romina Estes RDCS Room Number: [id number] Indications: CHEST PAIN Rhythm: Sinus Technical Quality: Fair FINDINGS Left Ventricle Normal global left ventricular size, wall thickness, systolic function with no obvious regional wall motion abnormalities. Left ventricular ejection fraction is estimated at >65 %. Normal left ventricular diastolic filling pattern for age. Right Ventricle The right ventricle is normal in size and function. Right Atrium The right atrium is normal in size. Left Atrium Left atrial size at the upper limits of normal. Mitral Valve Mild thickening/calcification of the mitral valve leaflets. Mild mitral regurgitation. Aortic Valve Structurally normal aortic valve without significant sclerosis or stenosis. There is no aortic regurgitation. Tricuspid Valve The tricuspid valve is normal in structure and function. There is mild tricuspid regurgitation. Pulmonary artery systolic pressure is normal. Pulmonic Valve Structurally normal pulmonic valve. There is trace pulmonic regurgitation. Pericardium Normal pericardium without effusion. No pleural effusion. Great Vessels Normal aortic root dimension. The aortic arch and great vessels are well seen and are normal. CONCLUSIONS Normal global left ventricular size, wall thickness, systolic function with no obvious regional wall motion abnormalities. Left atrial size at the upper limits of normal. Mild thickening/calcification of the mitral valve leaflets. Mild mitral regurgitation. Structurally normal aortic valve without significant sclerosis or stenosis. Pulmonary artery systolic pressure is normal. Loy Miller M.D. (Electronically Signed) Final Date: 26 August 2016 19:02 MEASUREMENTS (Male / Female) Normal Values 2D ECHO LV Diastolic Diameter PLAX 3.5 cm 4.2 - 5.9 / 3.9 - 5.3 cm LV Systolic Diameter PLAX 1.9 cm 2.1 - 4.0 cm LV Fractional Shortening PLAX 45.7 % 25 - 46 % LV Ejection Fraction 2D Teich 78.0 % IVS Diastolic Thickness 1.0 cm LVPW Diastolic Thickness 1.1 cm LV Relative Wall Thickness 0.6 RV Internal Dim ED PLAX 3.6 cm 1.9 - 3.8 cm LVOT Diameter 2.0 cm Aortic Root Diameter 3.5 cm LA Systolic Diameter LX 3.3 cm 3.0 - 4.0 / 2.7 - 3.8 cm LA Volume 50.0 cm 18 - 58 / 22 - 52 cm Ascending Aorta Diameter 3.4 cm DOPPLER AV Peak Velocity 190.0 cm/s AV Peak Gradient 14.4 mmHg AV Mean Velocity 132.0 cm/s AV Mean Gradient 8.0 mmHg AV Velocity Time Integral 45.4 cm LVOT Peak Velocity 117.0 cm/s LVOT Peak Gradient 5.5 mmHg LVOT Mean Velocity 78.0 cm/s LVOT Mean Gradient 3.0 mmHg LVOT Velocity Time Integral 26.5 cm LVOT Stroke Volume 83.3 cm AV Area Cont Eq vti 1.8 cm AV Area Cont Eq pk 1.9 cm MV Peak Velocity 94.2 cm/s MV Peak Gradient 3.5 mmHg MV Mean Velocity 40.5 cm/s MV Mean Gradient 1.0 mmHg Mitral E Point Velocity 73.1 cm/s Mitral A Point Velocity 43.4 cm/s Mitral E to A Ratio 1.7 MV PHT Velocity 99.9 cm/s MV Deceleration [place] 493.0 cm/s MV Pressure Half Time 60.8 ms MV Area PHT 3.6 cm MV Deceleration Time 335.0 ms TR Peak Velocity 226.0 cm/s TR Peak Gradient 20.4 mmHg Right Atrial Pressure 5.0 mmHg Pulmonary Artery Systolic Pressu 25.4 mmHg Right Ventricular Systolic Press 25.4 mmHg PV Peak Velocity 103.0 cm/s PV Peak Gradient 4.2 mmHg PV Mean Velocity 76.9 cm/s PV Mean Gradient 3.0 mmHg PV Velocity Time Integral 23.6 cm LV E' Lateral Velocity 11.8 cm/s Mitral E to LV E' Lateral Ratio 6.2 LV E' Septal Velocity 8.7 cm/s Mitral E to LV E' Septal Ratio 8.4
[2016-08-26 20:00] VITALS: BP 132/70
--- NOTE | 2016-08-26 21:03 | Admission Certification ---
Admission Certification Certification Statement - As attending physician, I certify that at the time of - admission, based on clinical presentation, severity of - symptoms, need for further diagnostic testing and - therapeutic interventions, and risk of adverse outcomes - without in-hospital treatment, in my clinical assessment, - this patient requires an acute hospital stay for a minimum - of two nights or longer. I have also considered psychsocial - factors such as support system, advanced age, financial - issues, cognitive issues, and failed out-patient treatments, - past re-admission history, safety of patient, and lack of - compliance as applicable. Specific rationale supporting this admission is: The patient presents with chest pain at rest and positive troponin as well as minor ST changes on EKG c/w CT- needs admission to ICU, IV heparin, nitroglycerine, Brilinta, ASA, Cardiology consult. Consider transfer for catheterization.
[2016-08-26 22:00] VITALS: BP 112/80
[2016-08-26 22:44] LABS: ABSOLUTE BASOPHIL COUNT 0.1 /CUMM (0.0-0.2); ABSOLUTE EOSINOPHIL COUNT 0.3 /CUMM (0.0-0.7); ABSOLUTE GRANULOCYTE CT 6.6 /CUMM (1.4-6.5); ABSOLUTE MONOCYTE COUNT 0.8 /CUMM (0.10-0.60); BASOPHIL % 0.7 % (0.0-2.0); EOSINOPHIL % 2.3 % (0-5); GRANULOCYTE % 56.2 % (42.2-75.2); HEMATOCRIT 43.7 % (42-52); MEAN CORPUSCULAR HGB 30.8 PG (27.0-31.0); MEAN CORPUSCULAR HGB CONC 33.6 G/DL (33.0-37.0); MEAN CORPUSCULAR VOLUME 91.9 FL (80.0-94.0); MEAN PLATELET VOLUME 7.9 FL (7.4-10.4); PLATELET COUNT 280 /CUMM (130-400); RBC DISTRIBUTION WIDTH 13.6 % (11.5-14.5); RED BLOOD CELL CT 4.76 /CUMM (4.70-6.10); WHITE BLOOD CELL COUNT 11.8 /CUMM (4.8-10.8)
[2016-08-27] VITALS: BP 100/60
--- NOTE | 2016-08-27 00:41 | NUR ---
1630: PT ARRIVED INTO ROOM 107 VIA STRETCHER. PT SETTLED INTO BED, ORIENTED TO ROOM AND PLAN OF CARE. CALL LIGHT IN REACH. PT ALERT AND ORIENTED. ASKED FOR MULTIPLE ITEMS - CUP FOR DENTURES, MEDS, DINNER, HEAT UP ETC.
--- NOTE | 2016-08-27 00:43 | NUR ---
PT USED URINAL AND PRODUCED 250 MLS OF BRIGHT RED BLOOD. NO CLOTS. SAFETY SCIENTIST ADVISED. TOLD TO KEEP HEPARIN GTT AT 20 ML/HR. SAFETY SCIENTIST SAID PT NEEDS TO BE KEPT ON HEPARIN FOR PROPOSED PROCEDURE TOMORROW AT [facility]. HEMODYNAMICS WILL BE CLOSELY MONITORED.
--- NOTE | 2016-08-27 01:36 | NUR ---
PT SLEEPY BUT EASILY AROUSABLE. DENIES PAIN AT THIS TIME. NSR 60-70'S, MANUAL BP 100/60. SATURATION ON RA 93-94%.
[2016-08-27 03:39] LABS: ABSOLUTE BASOPHIL COUNT 0.1 /CUMM (0.0-0.2); ABSOLUTE EOSINOPHIL COUNT 0.3 /CUMM (0.0-0.7); ABSOLUTE GRANULOCYTE CT 5.8 /CUMM (1.4-6.5); ABSOLUTE LYMPH COUNT 4.3 /CUMM (1.2-3.4); ABSOLUTE MONOCYTE COUNT 0.9 /CUMM (0.10-0.60); BASOPHIL % 0.5 % (0.0-2.0); EOSINOPHIL % 2.6 % (0-5); HEMATOCRIT 43.1 % (42-52); MEAN CORPUSCULAR HGB CONC 33.5 G/DL (33.0-37.0); MEAN CORPUSCULAR VOLUME 92.4 FL (80.0-94.0); MEAN PLATELET VOLUME 7.8 FL (7.4-10.4); PLATELET COUNT 275 /CUMM (130-400); RBC DISTRIBUTION WIDTH 13.2 % (11.5-14.5); RED BLOOD CELL CT 4.67 /CUMM (4.70-6.10); WHITE BLOOD CELL COUNT 11.3 /CUMM (4.8-10.8)
[2016-08-27 03:43] LABS: PTT 45 SEC (25-37)
[2016-08-27 04:00] VITALS: BP 110/70
[2016-08-27 08:00] VITALS: BP 110/62
--- NOTE | 2016-08-27 08:40 | Discharge Summary ---
Visit Information Visit Dates Admission Date: 08/26/16 Discharge Date: 08/27/16 Hospital Course Course Attending Physician: POP LOUIS MD Primary Care Physician: LINDA ROSARIO Other Care Providers: Cardiology - Dr. Loy Miller [facility] Course: Mr. Ricks is a 51-year-old gentleman with past medical history of nephrolithiasis, with a long standing history of tobacco use, a strong family history of coronary disease includine a his brother that of an [place] at 46, and a father with 3 MIs who presented to the ED with for evaluation of chest pain. Initial EKG on August 25 at 2235 hrs. shows sinus rhythm at a rate of 82% in minor inferolateral ST elevation of about 1 mm. Repeat EKG this morning at 8:55 AM showed sinus rhythm at a rate of 91 there is again minimal inferior and lateral ST elevation with no definite reciprocal changes. Repeat EKG at 10:27 AM showed sinus rhythm a rate of 72 with some nondiagnostic lateral ST elevation and extremely minimal inferior ST elevation again with no reciprocal changes. Problem List/Assessment and Plan Elevated troponins with ST-T elevations * On admission, the patient was given with aspirin, given morphine and nitroglycerine SL for his chest pain, which was changed to nitro-paste. Mr. Ricks, was worked up for an NSTEMI and myopericarditis. His echocardiogram is dictated below. He did not have any pericardial effusions or wall motion abnormalities. * Given these findings, we felt that his EKG changes and elevated troponin level was most likely 2/2 an NSTEMI. * He was admitted to the ICU for you monitoring and was started on IV heparin, and loaded with 180mg of Ticagrelor, then transitioned to 90mg BID. * He was kept NPO and trasnferred to [facility] for cardiac catheterization and possible intervention with Dr. Kramer. Abdominal Pulsation * Long standing history of smoking * Age recommendations for to screen for a AAA with ultrasonography start at 65 years old. I dont think he needs an emergent abdominal U/S, but given the fact that his abdominal pulsation was evident on physical exam, he should probably get one upon discharge to evaluate for a AAA given his long standing smoking hx. It could also just be his body habitus. * Please consider referal for abdominal US for AAA evaluation upon discharge. Allergies: Coded Allergies: NO KNOWN ALLERGIES (08/26/16) Significant Procedures: JULIANNA RICKS Age: 51 : 1965 Gender: M Exam Date: 08/26/2016 14:00 Exam Location: ER Ht (in): 72 Wt (lb): 215 BSA: 2.25 BP: 121 / 86 Ordering Physician: CARLTON MOON MD Referring Physician: Loy Miller MD Chief, SoC Technologist: Romina Estes [facility] Room Number: [id number] Indications: CHEST PAIN Rhythm: Sinus Technical Quality: Fair FINDINGS Left Ventricle Normal global left ventricular size, wall thickness, systolic function with no obvious regional wall motion abnormalities. Left ventricular ejection fraction is estimated at >65 %. Normal left ventricular diastolic filling pattern for age. Right Ventricle The right ventricle is normal in size and function. Right Atrium The right atrium is normal in size. Left Atrium Left atrial size at the upper limits of normal. Mitral Valve Mild thickening/calcification of the mitral valve leaflets. Mild mitral regurgitation. Aortic Valve Structurally normal aortic valve without significant sclerosis or stenosis. There is no aortic regurgitation. Tricuspid Valve The tricuspid valve is normal in structure and function. There is mild tricuspid regurgitation. Pulmonary artery systolic pressure is normal. Pulmonic Valve Structurally normal pulmonic valve. There is trace pulmonic regurgitation. Pericardium Normal pericardium without effusion. No pleural effusion. Great Vessels Normal aortic root dimension. The aortic arch and great vessels are well seen and are normal. CONCLUSIONS Normal global left ventricular size, wall thickness, systolic function with no obvious regional wall motion abnormalities. Left atrial size at the upper limits of normal. Mild thickening/calcification of the mitral valve leaflets. Mild mitral regurgitation. Structurally normal aortic valve without significant sclerosis or stenosis. Pulmonary artery systolic pressure is normal. Loy Miller M.D. (Electronically Signed) Final Date: 26 August 2016 19:02 MEASUREMENTS (Male / Female) Normal Values 2D ECHO LV Diastolic Diameter PLAX 3.5 cm 4.2 - 5.9 / 3.9 - 5.3 cm LV Systolic Diameter PLAX 1.9 cm 2.1 - 4.0 cm LV Fractional Shortening PLAX 45.7 % 25 - 46 % LV Ejection Fraction 2D Teich 78.0 % IVS Diastolic Thickness 1.0 cm LVPW Diastolic Thickness 1.1 cm LV Relative Wall Thickness 0.6 RV Internal Dim ED PLAX 3.6 cm 1.9 - 3.8 cm LVOT Diameter 2.0 cm Aortic Root Diameter 3.5 cm LA Systolic Diameter LX 3.3 cm 3.0 - 4.0 / 2.7 - 3.8 cm LA Volume 50.0 cm 18 - 58 / 22 - 52 cm Ascending Aorta Diameter 3.4 cm DOPPLER AV Peak Velocity 190.0 cm/s AV Peak Gradient 14.4 mmHg AV Mean Velocity 132.0 cm/s AV Mean Gradient 8.0 mmHg AV Velocity Time Integral 45.4 cm LVOT Peak Velocity 117.0 cm/s LVOT Peak Gradient 5.5 mmHg LVOT Mean Velocity 78.0 cm/s LVOT Mean Gradient 3.0 mmHg LVOT Velocity Time Integral 26.5 cm LVOT Stroke Volume 83.3 cm AV Area Cont Eq vti 1.8 cm AV Area Cont Eq pk 1.9 cm MV Peak Velocity 94.2 cm/s MV Peak Gradient 3.5 mmHg MV Mean Velocity 40.5 cm/s MV Mean Gradient 1.0 mmHg Mitral E Point Velocity 73.1 cm/s Mitral A Point Velocity 43.4 cm/s Mitral E to A Ratio 1.7 MV PHT Velocity 99.9 cm/s MV Deceleration [place] 493.0 cm/s MV Pressure Half Time 60.8 ms MV Area PHT 3.6 cm MV Deceleration Time 335.0 ms TR Peak Velocity 226.0 cm/s TR Peak Gradient 20.4 mmHg Right Atrial Pressure 5.0 mmHg Pulmonary Artery Systolic Pressu 25.4 mmHg Right Ventricular Systolic Press 25.4 mmHg PV Peak Velocity 103.0 cm/s PV Peak Gradient 4.2 mmHg PV Mean Velocity 76.9 cm/s PV Mean Gradient 3.0 mmHg PV Velocity Time Integral 23.6 cm LV E' Lateral Velocity 11.8 cm/s Mitral E to LV E' Lateral Ratio 6.2 LV E' Septal Velocity 8.7 cm/s Mitral E to LV E' Septal Ratio 8.4 DICTATED BY: LOY MILLER MD, V. DATE/TIME DICTATED:08/26/161901 ENVIRONMENTAL HEALTH MANAGER:AIDAN DATE/TIME TRANSCRIBED:08/26/161901 Pertinent Lab Results: Laboratory Tests 08/27 08/27 08/27 0600 0245 0245 Chemistry Troponin I (<0.11 ng/ml) 1.45 *H Triglycerides (<150 mg/dL) 209 H Cholesterol (< 200 MG/DL) 115 LDL Cholesterol, Calc (65 - 129 mg/dL) 43 L HDL Cholesterol (40 - 60 mg/dL) 31 L Cholesterol/HDL Ratio (0.00 - 4.88 %) 4 Coagulation APTT (25 - 37 SEC) 45 H Hematology CBC w Diff Cancelled MAN DIFF ORDERED WBC (4.8 - 10.8 /CUMM) Cancelled 11.3 H RBC (4.70 - 6.10 /CUMM) Cancelled 4.67 L Hgb (14.0 - 18.0 G/DL) Cancelled 14.5 Hct (42 - 52 %) Cancelled 43.1 MCV (80.0 - 94.0 FL) Cancelled 92.4 MCH (27.0 - 31.0 PG) Cancelled 31.0 RDW (11.5 - 14.5 %) Cancelled 13.2 Plt Count (130 - 400 /CUMM) Cancelled 275 MPV (7.4 - 10.4 FL) Cancelled 7.8 Gran % (42.2 - 75.2 %) 51.0 Lymphocytes % (20.5 - 51.1 %) 37.9 Monocytes % (1.7 - 9.3 %) 8.0 Eosinophils % (0 - 5 %) 2.6 Basophils % (0.0 - 2.0 %) 0.5 Absolute Granulocytes (1.4 - 6.5 /CUMM) 5.8 Segmented Neutrophils (42.2 - 75.2 %) 45 Band Neutrophils (0.0 - 5.0 %) 1 Absolute Lymphocytes (1.2 - 3.4 /CUMM) 4.3 H Lymphocytes (20.5 - 51.1 %) 48 Monocytes (1.7 - 9.3 %) 5 Absolute Monocytes (0.10 - 0.60 /CUMM) 0.9 H Eosinophils (0 - 5.0 %) 1 Absolute Eosinophils (0.0 - 0.7 /CUMM) 0.3 Absolute Basophils (0.0 - 0.2 /CUMM) 0.1 Platelet Estimate (ADEQUATE) ADEQUATE Normocytic RBCs VERIFIED Normochromic RBCs VERIFIED PUBS MCHC (33.0 - 37.0 G/DL) Cancelled 33.5 ESR Westergren (0 - 10 MM) 3 08/26 08/26 2200 2000 Chemistry Troponin I (<0.11 ng/ml) 1.50 *H Hematology CBC w Diff NO MAN DIFF REQ WBC (4.8 - 10.8 /CUMM) 11.8 H RBC (4.70 - 6.10 /CUMM) 4.76 Hgb (14.0 - 18.0 G/DL) 14.7 Hct (42 - 52 %) 43.7 MCV (80.0 - 94.0 FL) 91.9 MCH (27.0 - 31.0 PG) 30.8 RDW (11.5 - 14.5 %) 13.6 Plt Count (130 - 400 /CUMM) 280 MPV (7.4 - 10.4 FL) 7.9 Gran % (42.2 - 75.2 %) 56.2 Lymphocytes % (20.5 - 51.1 %) 34.2 Monocytes % (1.7 - 9.3 %) 6.6 Eosinophils % (0 - 5 %) 2.3 Basophils % (0.0 - 2.0 %) 0.7 Absolute Granulocytes (1.4 - 6.5 /CUMM) 6.6 H Absolute Lymphocytes (1.2 - 3.4 /CUMM) 4.0 H Absolute Monocytes (0.10 - 0.60 /CUMM) 0.8 H Absolute Eosinophils (0.0 - 0.7 /CUMM) 0.3 Absolute Basophils (0.0 - 0.2 /CUMM) 0.1 PUBS MCHC (33.0 - 37.0 G/DL) 33.6 Toxicology Urine Opiates Screen (>2000 NG/ML) 1208.00 Methadone Screen (>300 NG/ML) < 40 Barbiturate Screen (>200 NG/ML) < 60 Ur Phencyclidine Scrn (>25 NG/ML) < 6.00 Amphetamines Screen (>1000 NG/ML) < 100 U Benzodiazepines Scrn (>200 NG/ML) < 85 Urine Cocaine Screen (>300 NG/ML) 458 H Urine Cannabis Screen (>50 NG/ML) 79.20 H Urines Urinalysis MOD H Urine Color (YEL,AMB,STR) BLDY H Urine Clarity (CLEAR) TURBD H Urine pH (5.0 - 8.0) 6.0 Ur Specific Sweet (1.001 - 1.035) 1.025 Urine Protein (NEG,<30 MG/DL) >=300 H Urine Ketones (NEG) NEG Urine Nitrite (NEG) NEG Urine Bilirubin (NEG) NEG@ICTO Urine Urobilinogen (0.1 - 1.0 EU/dl) 0.2 Ur Leukocyte Esterase (NEG) TRACE H Ur Microscopic SEDIMENT EXAMINED Urine RBC (0 - 5 /HPF) >75 H Urine WBC (0 - 2 /HPF) 5-10 H Urine Bacteria (NEG/NONE) FEW H Urine Hemoglobin (NEG) LARGE H Urine Glucose (N MG/DL) NEG 08/26 08/26 1527 0912 Chemistry Sodium (137 - 145 mmol/L) 140 Potassium (3.5 - 5.1 mmol/L) 4.1 Chloride (98 - 107 mmol/L) 108 H Carbon Dioxide (22 - 30 mmol/L) 21 L Anion Gap (5 - 16) 12 BUN (9 - 20 mg/dL) 19 Creatinine (0.7 - 1.2 mg/dL) 0.8 Estimated GFR (>60 ml/min) > 60 BUN/Creatinine Ratio (7 - 25 %) 23.8 Glucose (65 - 99 mg/dL) 109 H Calcium (8.4 - 10.2 mg/dL) 9.6 Total Bilirubin (0.2 - 1.3 mg/dL) 0.6 AST (17 - 59 U/L) 43 ALT (21 - 72 U/L) 35 Alkaline Phosphatase (< 127 U/L) 63 Troponin I (<0.11 ng/ml) 1.66 *H 1.59 *H C-React Prot High Sens (1.0 - 3.0 mg/L) 1.1 [id number] Pept (<125 pg/mL) 273 H Total Protein (6.3 - 8.2 g/dL) 6.9 Albumin (3.5 - 5.0 g/dL) 4.3 Globulin (1.9 - 4.2 gm/dL) 2.6 Albumin/Globulin Ratio (1.1 - 2.2 %) 1.7 TSH (0.270 - 4.200 uIU/mL) 1.490 Coagulation PT (9.4 - 12.5 SEC) 10.5 INR (0.90 - 1.17) 1.00 Hematology CBC w Diff NO MAN DIFF REQ WBC (4.8 - 10.8 /CUMM) 13.4 H RBC (4.70 - 6.10 /CUMM) 4.86 Hgb (14.0 - 18.0 G/DL) 15.2 Hct (42 - 52 %) 43.7 MCV (80.0 - 94.0 FL) 90.0 MCH (27.0 - 31.0 PG) 31.2 H RDW (11.5 - 14.5 %) 13.4 Plt Count (130 - 400 /CUMM) 305 MPV (7.4 - 10.4 FL) 7.7 Gran % (42.2 - 75.2 %) 69.9 Lymphocytes % (20.5 - 51.1 %) 21.3 Monocytes % (1.7 - 9.3 %) 6.4 Eosinophils % (0 - 5 %) 2.1 Basophils % (0.0 - 2.0 %) 0.3 Absolute Granulocytes (1.4 - 6.5 /CUMM) 9.4 H Absolute Lymphocytes (1.2 - 3.4 /CUMM) 2.9 Absolute Monocytes (0.10 - 0.60 /CUMM) 0.9 H Absolute Eosinophils (0.0 - 0.7 /CUMM) 0.3 Absolute Basophils (0.0 - 0.2 /CUMM) 0 PUBS MCHC (33.0 - 37.0 G/DL) 34.7 Disposition Summary Disposition Principal Diagnosis: NSTEMI Additional Diagnosis: Chronic back pain Discharge Disposition: other general hospital Discharge Instructions General Discharge Information Code Status: Full Code Patient's Diet: Heart healthy Patient's Activity: As tolerated Follow-Up Instructions/Appts: Please follow up with Dr. Serna in 1 week of discharge after your cardiac catheterization. Please follow up with your PCP, Linda Rosario in 2 week. Medications at Discharge Discharge Medications: Continue taking these medications: Oxycodone HCl (Oxycontin) 10 MG TAB.ER.12H 1 Tablet ORAL TWICE DAILY Qty = 60 Oxycodone HCl (Oxycodone HCl) 10 MG TABLET 1 Tablet ORAL THREE TIMES DAILY Qty = 120 Instructions: 1 TAB IN AM 2 TABS IN AFTERNOON 1 TAB IN PM Start taking the following new medications: Aspirin (Aspirin*) 81 MG TAB.CHEW 81 Milligram ORAL DAILY Qty = 30 No Refills Ticagrelor (Brilinta) 90 MG TABLET 1 Tablet ORAL TWICE DAILY Qty = 60 No Refills Comments: Last Taken: 08/27/16 Time: 929 Heparin Sod,Porcine/0.9 % NaCl (Heparin-Ns 25,000 Units/250 Ml) 25,000 UNIT/250 ML (100 UNIT/ML) IV.SOLN 25,000 Units INTRAVEN DAILY Days = 1 No Refills Instructions: please titrate to 2x the upper limits of normal for aPTT Comments: Last Taken: 08/27/16 Time: 929 Copies To: PADMINI ARCOS,DEJA Coronel; LINDA ROSARIO Attending MD Review Statement Documenting Attending: POP LOUIS MD Other Findings: The patient was seen and discussed with house staff and Cardiology. Agree with plan of care to transfer to [facility] today for cardiac catheterization.
[2016-08-27] MEDS ORDERED: BRILINTA90 M1 PO (08:47)
[2016-08-27] MEDS ORDERED: ASPIRIN81 M4 PO (08:47)
[2016-08-27] MEDS ORDERED: HEPARIN-NS25000 UNIT IV (08:47)
--- NOTE | 2016-08-27 08:58 | PN- Resident CRCU ---
JO TORRES 08/27/16 0858: Subjective HPI/CRCU Issues: Yesterday night patient started having hematuria. Patient recently had lithotripsy of right kidney stones about 2 weeks ago. Hematuria started after starting heparin drip. CBC was ordered and hematocrit was stable. This morning patient is alert, awake and oriented. He is hemodynamically stable. He is still passing cola colored urine but no bright red blood. Complaining of mild back and neck pain. Denies any chest pain or discomfort, palpitations, dizziness or lightheadedness. Objective Vital Signs & I&O Last 8 Hrs of Vitals and I&O: Temp 98 HR 70-84 RR 18-22 BP 132-100/86-60 Pulse ox 98 Exam General Appearance: well developed/nourished, no apparent distress, alert, awake , anxious Neck: normal inspection Respiratory: normal breath sounds, chest non-tender, lungs clear Cardiovascular: regular rate/rhythm Gastrointestinal: normal bowel sounds, soft, non-tender Extremities: no edema IV Drips IV Drips: heparin Nutrition Nutrition: NPO Current Medications: Current Medications Sig/Arlene Start time Last Medication Dose Route Stop Time Status Admin Acetaminophen 650 MG Q6P PRN 08/26 1245 AC PO Aspirin 81 MG DAILY 08/27 1000 AC PO Aspirin 0 .STK-MED ONE 08/26 0953 DC PO Aspirin 324 MG ONCE ONE 08/26 0930 DC 08/26 PO 08/26 0931 0950 Atorvastatin Calcium 80 MG 1700 08/26 1700 AC 08/26 PO 1919 Dextrose/Sodium 1,000 ML Q13H 08/27 0745 AC 08/27 Chloride IV 0837 Heparin Sodium 0 .STK-MED ONE 08/26 1636 DC (Porcine) .ROUTE Heparin Sodium 25,000 UNIT Q24H 08/26 1615 AC 08/26 (Porcine) IV 1649 Sodium Chloride 500 ML Heparin Sodium 4,000 UNIT ONCE ONE 08/26 1615 DC 08/26 (Porcine) IV 08/26 1616 1635 Ibuprofen 600 MG Q6P PRN 08/26 1245 DC PO Lorazepam 0 Q1P PRN 08/26 1900 AC 08/26 IV 1919 Morphine Sulfate 2 MG Q4P PRN 08/26 1245 AC IV Morphine Sulfate 2 MG ONCE ONE 08/26 1030 DC 08/26 IV 08/26 1031 1033 Nitroglycerin 0 .STK-MED ONE 08/26 1446 DC TOP Nitroglycerin 0.5 GM Q6 08/26 1421 AC 08/27 TOP 0611 Nitroglycerin 0 .STK-MED ONE 08/26 0953 DC SL Nitroglycerin 0.4 MG ONCE ONE 08/26 0930 DC 08/26 SL 08/26 0931 0950 Oxycodone/ 1 TAB ONCE ONE 08/26 1900 DC 08/26 Acetaminophen PO 08/26 1901 1911 Oxycodone/ 1 TAB ONCE ONE 08/26 1845 DC 08/26 Acetaminophen PO 08/26 1846 1851 Ticagrelor 90 MG BID 08/27 1000 AC PO Ticagrelor 180 MG ONCE ONE 08/26 1615 DC 08/26 PO 08/26 1616 1911 Impression/Plan Impression/Problem List Impression: His 51-year-old man with past medical history of nephrolithiasis status post lithotripsy 2 weeks prior to admission, chronic back and neck pain on opiates and medical marijuana, current every day smoker and strong family history of coronary artery disease. Problem list 1. NSTEMI. On heparin drip. Troponins trended down 2. Hematuria. Hematocrit stable 3. Chronic back and neck pain. Pain management with opiates and medical marijuana 4. Positive U tox for cocaine and cannabis PLAN * Continue IV heparin drip * Continue aspirin, Brilinta, Statin and Nitro-Bid * Keep patient nothing by mouth * Gentle hydration * Plan is to transfer patient to [facility] for cardiac cath today. Accepting physician is Williams. Problem List: 1. Chest pain syndrome Pain Ratin Tomorrow's Labs & Rationales: none Plan DVT/Prophylaxis: pharmacological Code Status: Full Code POP LOUIS MD 08/27/16 1414: Attending MD Review Statement Attending Sign Off Attending Cosign Statement: I have: examined this patient, reviewed aval EMR data, personally reviewd images, discussd w/resident/PA/ANALYTICAL CONSULTANT, discussed mgmt plan w/que, discussed mgmt plan w/CM, discussed mgmt plan w/pt, agreed w/resident/PA/ANALYTICAL CONSULTANT, amended to note. Other Findings: The patient was seen and discussed with resident. Agree with the assessment and plan as outlined. Appreciate Cardiology input. Will transfer today to [facility] for cardiac catheterization.
--- NOTE | 2016-08-27 09:11 | PN- Cardiology ---
Subjective Subjective: Patient has had occasional chest discomfort overnight. He has dark urine but not yoan blood. [facility]ri[facility] ago Review of Systems: Eyes no blurred or double vision Ears no deafness or ringing Nose and throat no recurrent sinusitis Lungs per history of present illness Heart per history of present illness Abdomen no nausea vomiting Musculoskeletal occasional muscle and joint pains Psych no anxiety or depression Neuro without recurrent headache or seizures Endocrine no heat or cold intolerance Objective Vital Signs and I&Os Vital Signs Date Time Temp Pulse Resp B/P B/P Pulse O2 O2 Flow FiO2 Mean Ox Delivery Rate 08/27 0400 97.4 70 16 110/70 08/27 0400 95 Room Air 08/27 0000 98.4 742 20 100/60 07 0000 93 Room Air 08/27 0000 98.4 74 20 100/60 93 Room Air Room Air 08/26 2200 98.0 80 22 112/80 08/26 2000 98.0 84 22 132/70 08/26 1800 98.2 84 20 144/70 08/26 1438 63 132/74 98 Room Air 08/26 1317 97.7 65 18 121/86 97 Room Air 08/26 1145 98.4 76 18 135/76 98 Room Air 08/26 1033 97.9 74 18 114/78 95 / 0958 98.4 76 18 124/79 98 Room Air 08/26 0952 98.6 81 18 123/87 98 Room Air 08/26 0916 98 Room Air Intake & Output 08/27 1600 08/27 0800 08/27 0000 08/26 1600 08/26 0800 08/26 0000 Intake Total 710 0 Output Total 250 Balance 460 0 Intake, IV 110 Intake, Oral 600 0 Output, Urine 250 Patient 215 lb 215 lb Weight Weight Reported by Patient Reported by Patient Measurement Method Physical Exam: Patient is a well-developed well-nourished male appearing in no acute distress HEENT is unremarkable Neck is supple there is no JVD Lungs are clear Heart regular rhythm S1 and S2 are normal no murmurs gallops or rubs Abdomen bowel sounds positive Extremities without edema Current Medications: Current Medications Sig/Arlene Start time Last Medication Dose Route Stop Time Status Admin Acetaminophen 650 MG Q6P PRN 08/26 1245 AC PO Aspirin 81 MG DAILY 08/27 1000 AC PO Aspirin 0 .STK-MED ONE 08/26 0953 DC PO Aspirin 324 MG ONCE ONE 08/26 0930 DC 08/26 PO 08/26 0931 0950 Atorvastatin Calcium 80 MG 1700 08/26 1700 AC 08/26 PO 1919 Dextrose/Sodium 1,000 ML Q13H 08/27 0745 AC Chloride IV Heparin Sodium 0 .STK-MED ONE 08/26 1636 DC (Porcine) .ROUTE Heparin Sodium 25,000 UNIT Q24H 08/26 1615 AC 08/26 (Porcine) IV 1649 Sodium Chloride 500 ML Heparin Sodium 4,000 UNIT ONCE ONE 08/26 1615 DC 08/26 (Porcine) IV 08/26 1616 1635 Ibuprofen 600 MG Q6P PRN 08/26 1245 DC PO Lorazepam 0 Q1P PRN 08/26 1900 AC 08/26 IV 1919 Morphine Sulfate 2 MG Q4P PRN 08/26 1245 AC IV Morphine Sulfate 2 MG ONCE ONE 08/26 1030 DC 08/26 IV 08/26 1031 1033 Nitroglycerin 0 .STK-MED ONE 08/26 1446 DC TOP Nitroglycerin 0.5 GM Q6 08/26 1421 AC 08/27 TOP 0611 Nitroglycerin 0 .STK-MED ONE 08/26 0953 DC SL Nitroglycerin 0.4 MG ONCE ONE 08/26 0930 DC 08/26 SL 08/26 0931 0950 Oxycodone/ 1 TAB ONCE ONE 08/26 1900 DC 08/26 Acetaminophen PO 08/26 190 1911 Oxycodone/ 1 TAB ONCE ONE 08/26 1845 DC 08/26 Acetaminophen PO 08/26 1846 1851 Ticagrelor 90 MG BID 08/27 1000 AC PO Ticagrelor 180 MG ONCE ONE 08/26 1615 DC 08/26 PO 08/26 1616 1911 Results Last 48 Hrs of Labs/Mics: Laboratory Tests 08/27/16 0600: CBC w Diff Cancelled, WBC Cancelled, RBC Cancelled, Hgb Cancelled, Hct Cancelled , MCV Cancelled, MCH Cancelled, RDW Cancelled, Plt Count Cancelled, MPV Cancelled, PUBS MCHC Cancelled 08/27/16 0245: ESR Westergren 3 08/27/16 0245: Troponin I 1.45 *H, Triglycerides 209 H, Cholesterol 115, LDL Cholesterol, Calc 43 L, HDL Cholesterol 31 L, Cholesterol/HDL Ratio 4, APTT 45 H, CBC w Diff MAN DIFF ORDERED, RBC 4.67 L, MCV 92.4, MCH 31.0, RDW 13.2, MPV 7.8, Gran % 51.0, Lymphocytes % 37.9, Monocytes % 8.0, Eosinophils % 2.6, Basophils % 0.5, Absolute Granulocytes 5.8, Segmented Neutrophils 45, Band Neutrophils 1, Absolute Lymphocytes 4.3 H, Lymphocytes 48, Monocytes 5, Absolute Monocytes 0.9 H, Eosinophils 1, Absolute Eosinophils 0.3, Absolute Basophils 0.1, Platelet Estimate ADEQUATE, Normocytic RBCs VERIFIED, Normochromic RBCs VERIFIED, PUBS MCHC 33.5 08/26/16 2200: Troponin I 1.50 *H, CBC w Diff NO MAN DIFF REQ, RBC 4.76, MCV 91.9, MCH 30.8, RDW 13.6, MPV 7.9, Gran % 56.2, Lymphocytes % 34.2, Monocytes % 6.6, Eosinophils % 2.3, Basophils % 0.7, Absolute Granulocytes 6.6 H, Absolute Lymphocytes 4.0 H, Absolute Monocytes 0.8 H, Absolute Eosinophils 0.3, Absolute Basophils 0.1, PUBS MCHC 33.6 08/26/16 2000: Urine Opiates Screen 1208.00, Methadone Screen < 40, Barbiturate Screen < 60, Ur Phencyclidine Scrn < 6.00, Amphetamines Screen < 100, U Benzodiazepines Scrn < 85, Urine Cocaine Screen 458 H, Urine Cannabis Screen 79.20 H, Urinalysis MOD H, Urine Color BLDY H, Urine Clarity TURBD H, Urine pH 6.0, Ur Specific [place] 1.025, Urine Protein >=300 H, Urine Ketones NEG, Urine Nitrite NEG, Urine Bilirubin NEG@ICTO, Urine Urobilinogen 0.2, Ur Leukocyte Esterase TRACE H , Ur Microscopic SEDIMENT EXAMINED, Urine RBC >75 H, Urine WBC 5-10 H, Urine Bacteria FEW H, Urine Hemoglobin LARGE H, Urine Glucose NEG 08/26/16 1527: Troponin I 1.66 *H 08/26/16 0912: Anion Gap 12, Estimated GFR > 60, BUN/Creatinine Ratio 23.8, Glucose 109 H, Calcium 9.6, Total Bilirubin 0.6, AST 43, ALT 35, Alkaline Phosphatase 63, Troponin I 1.59 *H, C-React Prot High Sens 1.1, Bdo-M-Dzxyhgqvmhr Pept 273 H, Total Protein 6.9, Albumin 4.3, Globulin 2.6, Albumin/Globulin Ratio 1.7, TSH 1.490, PT 10.5, INR 1.00, CBC w Diff NO MAN DIFF REQ, RBC 4.86, MCV 90.0, MCH 31.2 H, RDW 13.4, MPV 7.7, Gran % 69.9, Lymphocytes % 21.3, Monocytes % 6.4, Eosinophils % 2.1, Basophils % 0.3, Absolute Granulocytes 9.4 H, Absolute Lymphocytes 2.9, Absolute Monocytes 0.9 H, Absolute Eosinophils 0.3, Absolute Basophils 0, PUBS MCHC 34.7 Telemetry personally reviewed sinus rhythm Recent Imaging Studies: Echocardiogram CONCLUSIONS Normal global left ventricular size, wall thickness, systolic function with no obvious regional wall motion abnormalities. Left atrial size at the upper limits of normal. Mild thickening/calcification of the mitral valve leaflets. Mild mitral regurgitation. Structurally normal aortic valve without significant sclerosis or stenosis. Pulmonary artery systolic pressure is normal. Loy Miller M.D. Assessment/Plan Assessment/Plan #1. Acute non-ST elevation myocardial infarction with recurrent episodes chest discomfort #2. Recent lithotripsy approximately 2 weeks ago with mild hematuria #3. Strong family history of coronary artery disease brother age 46 of an DC father has had 3 MIs #4. Current smoker #5. Echo with normal LV function Recommendations #1. Continue current medications #2. Add long discussion with the patient regarding the options. I recommend that he undergo cardiac catheterization. He is in agreement with proceeding. Patient will be transferred to [facility] today. Continue telemetry? Yes
--- NOTE | 2016-08-27 13:11 | Patient Discharge Instructions ---
Discharge Instructions General Discharge Information You were seen/treated for: NSTEMI Special Instructions: 1. Please follow-up with her primary care provider after discharge 2. Please follow-up with your director digital strategy after discharge Diet Recommended Diet: Heart Healthy Activity Full Activity/No Limits: Yes Acute Coronary Syndrome Inclusion Criteria At DC or during hospital stay patient has or had the following: ACS DIAGNOSIS Yes Discharge Core Measures Meds if any: Prescribed or Continued at Discharge Aspirin Yes Beta-Deo No Statin Yes Meds if any: NOT Prescribed or Continued at Discharge Congestive Heart Failure Inclusion Criteria At DC or during hospital stay patient has or had the following: CHF DIAGNOSIS No Discharge Core Measures Meds if any: Prescribed or Continued at Discharge Meds if any: NOT Prescribed or Continued at Discharge Cerebrovascular accident Inclusion Criteria At DC or during hospital stay patient has or had the following: CVA/TIA Diagnosis No Discharge Core Measures Meds if any: Prescribed or Continued at Discharge Meds if any: NOT Prescribed or Continued at Discharge Venous thromboembolism Inclusion Criteria VTE Diagnosis No VTE Type NONE VTE Confirmed by (Test) NONE Discharge Core Measures - Per Current guidelines, there needs to be overlap - treatment for the first 5 days of Warfarin therapy. - If discharged on Warfarin prior to 5 days of - overlap therapy, the patient will need to be - assessed for post discharge needs including - *Post discharge parental anticoagulation - *Warfarin and/or parental anticoagulation education - *Follow up date to check INR post discharge At least 5 days overlap therapy as Inpatient No Meds if any: Prescribed or Continued at Discharge Note: Overlap Therapy is Warfarin and Anticoagulant Meds if any: NOT Prescribed or Continued at Discharge
== END 2016-08-27 14:00 | disposition short-term general hospital (02) | DRG 282 ==
LOC: ERH 08:51 → CRI 10:36 → ERHI 10:36 → ENRESERV 15:31 → ENTRNSPT 16:23 → CRI 16:43 → CMPTRNSPT 17:13 → CRI 08-27 14:00
PROVIDERS: Emergency Medicine; Internal Medicine Cardiovascular Disease; Internal Medicine Interventional Cardiology; ADMIT Internal Medicine
DX: I21.4 Non-ST elevation (NSTEMI) myocardial infarction (principal); F32.9 Major depressive disorder, single episode, unspecified; G89.29 Other chronic pain; Z87.442 Personal history of urinary calculi; Z82.49 Family history of ischemic heart disease and other diseases of the circulatory system; F17.210 Nicotine dependence, cigarettes, uncomplicated; F41.9 Anxiety disorder, unspecified; M54.30 Sciatica, unspecified side; M54.5 Low back pain; R31.9 Hematuria, unspecified; Z79.891 Long term (current) use of opiate analgesic; M54.2 Cervicalgia
CPT/HCPCS: CCU; 36415; 80307; 81001; 93005; 93010; 93306; 96374; 99291; J1644; J3490; J7042